=== PATIENT | male | born 1930 | race Caucasian/White ===

== ENCOUNTER 2018-07-27 12:33 | Emergency (ER) | payer OTHER ==
[~2018-07-27 12:33] MED LIST: ACETAMINOPHEN325 M1 PO; ALBUTEROL2.5 MG/0.1 INH; ASPIRIN81 M2 PO; CIPRO250 M1 PO; COLACE100 MG PO; LIDODERM 5%1 PATC1 TOP; MEDROL DOSPAK21 TA1; MEDROL DOSPAK21 TAB PO; NORCO 5-325 TA1 EACH PO; PREDNISONE 10 M10 M1 PO; ROBAXIN 750 MG750 M1 PO; SPIRIVA INH; VENTOLIN HFA 1818 GM INH
[2018-07-27] MEDS ORDERED: ARICEPT 5 MG TAB5 MG PO (13:17)
[2018-07-27] MEDS ORDERED: B-12500 MCG PO (13:19)
[2018-07-27 16:04] VITALS: BP 128/67
== END 2018-07-27 16:04 | disposition home or self-care (01) ==
LOC: ER 12:33
DX: T14.8XXA Other injury of unspecified body region, initial encounter (principal); M54.6 Pain in thoracic spine; M25.511 Pain in right shoulder; Z88.5 Allergy status to narcotic agent; Z88.8 Allergy status to other drugs, medicaments and biological substances; W18.30XA Fall on same level, unspecified, initial encounter; Y93.89 Activity, other specified; Y92.89 Other specified places as the place of occurrence of the external cause; Y99.8 Other external cause status

== ENCOUNTER 2018-10-17 21:41 | Emergency (ER) | payer OTHER ==
[~2018-10-17] VITALS: Ht 182.9 cm; Wt 86.2 kg
[~2018-10-17 21:41] MED LIST changes: +ARICEPT 5 MG TAB5 MG PO; +B-12500 MCG PO
[2018-10-17 23:42] LABS: URINE BILIRUBIN NEGATIVE (Negative); URINE BLOOD TRACE (Negative); URINE CLARITY CLEAR; URINE COLOR YELLOW; URINE GLUCOSE-RANDOM* NEGATIVE (Negative); URINE KETONES NEGATIVE (Negative); URINE LEUKOCYTES-REFLEX NEGATIVE (Negative); URINE NITRITE-REFLEX NEGATIVE (Negative); URINE PROTEIN (DIPSTICK) NEGATIVE (Negative); URINE SPECIFIC GRAVITY <= 1.005 (1.005-1.035); URINE UROBILINOGEN 0.2 E.U./dl (0.2-1.0)
[2018-10-17 23:54] LABS: HEMATOCRIT 38.8 % (42.0-52.0); HEMOGLOBIN 13.3 gm/dL (14.0-18.0); MCH 31.4 pg (26.0-34.0); MCHC 34.2 g/dL (28.0-37.0); PLATELET COUNT 215 thou/uL (150-400); RBC 4.22 mil/uL (4.50-6.00); RDW 14.3 % (10.5-14.5); WBC 10.3 thou/uL (4.0-11.0)
[2018-10-17 23:57] LABS: AMP/METHAMP Negative (Negative); BARBITURATES Negative (Negative); BENZODIAZEPINES Negative (Negative); COCAINE Negative (Negative); METHADONE Negative (Negative); OPIATES Negative (Negative); PCP Negative (Negative)
[2018-10-18 00:09] LABS: ANION GAP 9 mmol/L (7-16); BUN 19 mg/dL (7-18); CALCIUM 9.5 mg/dL (8.5-10.1); CHLORIDE 101 mmol/L (98-107); CO2 27 mmol/L (21-32); CREATININE 1.1 mg/dL (0.7-1.3); GLUCOSE 91 mg/dL (74-106); SODIUM 137 mmol/L (136-145)
[2018-10-18 00:15] LABS: ALBUMIN 3.7 g/dL (3.4-5.0); SGOT 17 U/L (15-37); SGPT 16 U/L (30-65); TOTAL BILIRUBIN 0.5 mg/dL (<0.1-1.0); TOTAL PROTEIN 7.5 g/dL (6.4-8.2); TROPONIN-I <0.06 ng/mL (<0.06)
[2018-10-18 00:26] LABS: ABSOLUTE NEUTROPHILS 7.4 thou/uL (1.4-8.2)
[2018-10-18 01:00] VITALS: BP 134/75
--- NOTE | 2018-10-21 07:56 | EKG ---
[address] [address] [address] [address] ELECTROCARDIOGRAM REPORT Name: NAIMA WHEELER Room #: DEP [facility]#: [id number] Admission: 10/17/18 Attend Phys: Discharge: 10/18/18 Date of : 31 Report #: [id number] THIS REPORT FOR: //name// [facility] ED Test Date: 2018-10-17 Test Time: 23:03:21 Pat Name: NAIMA WHEELER Department: Room: Gender: M Cycle Touring Guide: cassandra : 1930 Requested By: Tez Kaufman Order Number: [id number] MD: Hola Pinon Measurements Intervals [place] Rate: 69 P: -46 IN: 192 QRS: -36 QRSD: 83 T: 60 QT: 391 QTc: 419 Interpretive Statements Sinus rhythm Left axis deviation Abnormal R-wave progression, early transition Compared to ECG 10/20/2012 13:04:02 No significant change was found Electronically Signed On 10-21-2018 7:56:24 CDT by Hola Pinon [email or web address] <ELECTRONICALLY SIGNED> By: Hola Pinon MD, [facility] 10/21/18 0756 02 02 Hola Pinon MD, [facility] /EPI
== END 2018-10-18 01:00 | disposition home or self-care (01) ==
LOC: ER 21:41
PROVIDERS: Emergency Medicine
DX: R53.1 Weakness (principal); R41.0 Disorientation, unspecified; R19.7 Diarrhea, unspecified; R42 Dizziness and giddiness; E16.2 Hypoglycemia, unspecified; M54.9 Dorsalgia, unspecified; G89.29 Other chronic pain; Z90.49 Acquired absence of other specified parts of digestive tract; Z90.89 Acquired absence of other organs; Z88.5 Allergy status to narcotic agent; Z88.8 Allergy status to other drugs, medicaments and biological substances; W18.39XA Other fall on same level, initial encounter; Y92.89 Other specified places as the place of occurrence of the external cause; Y93.89 Activity, other specified; Y99.8 Other external cause status

== ENCOUNTER 2019-03-01 17:34 | Emergency (ER) | payer OTHER ==
[~2019-03-01] VITALS: Ht 182.9 cm; Wt 90.7 kg
[2019-03-01 19:51] VITALS: BP 106/67
== END 2019-03-01 20:06 | disposition home or self-care (01) ==
LOC: ER 17:34
DX: S51.812A Laceration without foreign body of left forearm, initial encounter (principal); Z90.49 Acquired absence of other specified parts of digestive tract; Z88.6 Allergy status to analgesic agent; Z88.8 Allergy status to other drugs, medicaments and biological substances; W18.39XA Other fall on same level, initial encounter; Y93.89 Activity, other specified; Y92.89 Other specified places as the place of occurrence of the external cause; Y99.8 Other external cause status

== ENCOUNTER 2019-03-06 08:42 | Inpatient (IN) | payer OTHER ==
[~2019-03-06] VITALS: Ht 188 cm; Wt 81.6 kg
[2019-03-06 08:48] VITALS: BP 125/67
[2019-03-06 09:22] LABS: ABSOLUTE NEUTROPHILS 11.2 thou/uL (1.4-8.2); BASOPHILS 0.6 % (0.0-2.0); EOSINOPHILS 0.1 % (0.0-3.0); HEMATOCRIT 43.6 % (42.0-52.0); HEMOGLOBIN 14.2 gm/dL (14.0-18.0); MCH 30.5 pg (26.0-34.0); MCHC 32.5 g/dL (28.0-37.0); MCV 93.7 fL (80.0-100.0); PLATELET COUNT 223 thou/uL (150-400); POLYS 89.3 % (36.0-66.0); RBC 4.66 mil/uL (4.50-6.00); RDW 13.8 % (10.5-14.5); WBC 12.6 thou/uL (4.0-11.0)
[2019-03-06 09:30] LABS: ANION GAP 14 mmol/L (7-16); BUN 23 mg/dL (7-18); CHLORIDE 100 mmol/L (98-107); CO2 23 mmol/L (21-32); CREATININE 1.6 mg/dL (0.7-1.3); GLUCOSE 190 mg/dL (74-106); POTASSIUM 4.4 mmol/L (3.5-5.1); SODIUM 137 mmol/L (136-145)
[2019-03-06 09:39] LABS: TROPONIN-I <0.06 ng/mL (<0.06)
[2019-03-06 12:37] VITALS: BP 125/57
--- NOTE | 2019-03-06 13:56 | EKG ---
[address] [address] ELECTROCARDIOGRAM REPORT Name: NAIMA WHEELER Room #: 461-P ADM IN M.R.#: [id number] Admission: 03/06/19 Attend Phys: Beck Adam MD Discharge: Date of : 31 Report #: [id number] THIS REPORT FOR: //name// [facility] ED Test Date: 2019-03-06 Test Time: 09:26:02 Pat Name: NAIMA WHEELER Department: Room: 461 Gender: M Spanish Instructor: ESHEETS : 1930 Requested By: Scott Still Order Number: [id number] MD: Theo De La Garza Measurements Intervals [place] Rate: 89 P: -11 MI: 168 QRS: -47 QRSD: 83 T: 70 QT: 331 QTc: 403 Interpretive Statements Sinus rhythm Left anterior fascicular block Abnormal R-wave progression, early transition Compared to ECG 10/17/2018 23:03:21 Left anterior fascicular block now present Left-axis deviation no longer present Electronically Signed On 03-06-2019 13:55:49 RECORD PRESSMAN by Theo De La Garza [email or web address] <ELECTRONICALLY SIGNED> By: Theo De La Garza MD 03/06/19 1355 5 5 Theo De La Garza MD /EPI
--- NOTE | 2019-03-06 14:52 | NUR ---
ASSUMED CARE OF PATIENT APPROX. 1330. PATIENT ALERT AND AWAKE, VSS, TEMP 99.1, NO APPARENT PAIN. PATIENT HAS NON PRODUCTIVE COUGH, LUNGS DIM AND BREATHING REGULAR. FAMILY AT BEDSIDE. NO SIGNS OF DISTRESS. WILL CONTINUE TO MONITOR.
[2019-03-06 19:51] VITALS: BP 138/654
--- NOTE | 2019-03-07 02:34 | NUR ---
PATIENT AOX2 FORGETFUL AND CONFUSED AT TIME. PATIENT ON DROPLET ISOLATION. PATIENT HAS SCD ON. PATIENT HAS A NON PRODUCIVE COUGH. PATIENT HAS STITCHES ON LFA AND ABRASION ON THE NOSE NO S/S F INFECTION. PATIENT DENIED PAIN OR DISCOMFORT. PATIENT INCONTIENT PERICARE AND BARRIER CREAM APPLIED NEEDED. PATIENT IN BED ASLEEP AT THIS TIME BREATHING REGULAR AND UNLABOURED.
[2019-03-07 04:44] LABS: HEMATOCRIT 42.3 % (42.0-52.0); HEMOGLOBIN 13.8 gm/dL (14.0-18.0); MCH 30.9 pg (26.0-34.0); MCHC 32.7 g/dL (28.0-37.0); MCV 94.3 fL (80.0-100.0); RBC 4.48 mil/uL (4.50-6.00); WBC 8.4 thou/uL (4.0-11.0)
[2019-03-07 04:52] LABS: CALCIUM 8.6 mg/dL (8.5-10.1); MAGNESIUM 1.9 mg/dL (1.8-2.4); POTASSIUM 3.5 mmol/L (3.5-5.1)
[2019-03-07 08:51] VITALS: BP 116/67
[2019-03-07 15:00] VITALS: BP 108/57
--- NOTE | 2019-03-07 18:43 | NUR ---
PT A&OX2, VSS, NO APPARENT PAIN. PATIENT HAS COUGH, LUNGS COURSE, BREATHING REGULAR. NO SIGNS OF DISTRESS. PATIENT HAS LOOSE STOOLS TODAY. IV FLUIDS RUNNING. WILL CONTINUE TO MONITOR.
[2019-03-07 20:50] VITALS: BP 121/64
[2019-03-08 02:42] LABS: URINE BILIRUBIN NEGATIVE (Negative); URINE BLOOD 1+ (Negative); URINE CLARITY CLEAR; URINE COLOR YELLOW; URINE GLUCOSE-RANDOM* NEGATIVE (Negative); URINE KETONES NEGATIVE (Negative); URINE LEUKOCYTES-REFLEX NEGATIVE (Negative); URINE NITRITE-REFLEX NEGATIVE (Negative); URINE PROTEIN (DIPSTICK) NEGATIVE (Negative); URINE SPECIFIC GRAVITY 1.025 (1.005-1.035); URINE UROBILINOGEN 0.2 E.U./dl (0.2-1.0)
[2019-03-08 02:49] LABS: BACTERIA-REFLEX None Seen /HPF (None Seen); CASTS None Seen /LPF (None Seen); CRYSTALS None Seen /LPF (None Seen); MUCUS None Seen strn/LPF (None Seen); SQUAMOUS None Seen /LPF (0-3); URINE RBC None Seen /HPF (0-2); URINE WBC-REFLEX None Seen /HPF (0-5)
--- NOTE | 2019-03-08 03:10 | NUR ---
PATIENT AOX2 CONFUSED AND FORGETFUL. PATIENT CONTINUES TO BE ON ISOLATION FOR INFLUENZA A. PATIENT HAS 9 SUTURES ON LFA AND ABRASION ON THE NOSE, D/T A FALL AT HOME.NO S/S OF INFECTION. PAIN CONTROLLED THIS SHIFT. PATIENT INCONTIENT PERICARE AND BARRIER CREAM APPLIED NEEDED. PATIENT IN BED ASLEEP AT THIS TIME BREATHING REGULAR AND NLABOURED.
[2019-03-08 08:12] VITALS: BP 143/85
--- NOTE | 2019-03-08 18:55 | NUR ---
Alert, oriented to self; confused, diarrhea, Dr. Jair duron, no response; no sign of pain, no n/v; good appetite. afebrile.
--- NOTE | 2019-03-09 07:43 | NUR ---
ASSUMED CARE AROUND 191. AXOX2. CONFUSED WITH INTEMITTENT IMPULSION. ISO FOR INFLUENZA. NO S/S ACUTE DISTRESS NOTED OR REPORTED AT THIS TIME. CARE TRANSFERRED TO INCOMING RN AT THIS TIME.
[2019-03-09 08:00] VITALS: BP 104/82
--- NOTE | 2019-03-09 09:49 | NUR ---
INITIAL ASSESSMENT: Pt evaluated for d/c planning needs. Reviewed chart and spoke with nurse, pt and pt's daughter. Pt lives alone in house. Dtr lives a block away and states pt is never alone while he is awake. He is alone at night. Pt has memory issues and family has been looking into assisted living. Family wants pt to go directly to [place], and not d/c home. Discussed SNF and dtr is in agreement. Dtr said she has been looking at [facility] and wants referral sent to [facility]. Pt had used walker or cane at home. Pt has had home health in the past. Referral faxed to [facility]. Will remain available to assist as needed.
--- NOTE | 2019-03-09 10:56 | NUR ---
Received awake on bed. Due medications given as prescribed, able to swallow meds w/o difficulty. A+O2-3. On room air. Vital signs stable. Assisted in ADLs. On and off incontinence- checked frequently and changed as needed. With NS at 126cc/hr infusing well at R Hand. Falls bundle in place. Assisted and encouraged in eating and drinking. Able to sit out on chair today. A/w discharge plans and placement. Maintained on isolation due to Influenza, protocol observed.
[2019-03-09 15:00] VITALS: BP 140/69
[2019-03-09 19:23] VITALS: BP 110/55
--- NOTE | 2019-03-10 05:44 | NUR ---
Pt. rested quietly most of the shift, but early this am he has been restless. Pt. has set off his bed alarm off frequently. He wants to urinate and urinal offered to him, but he has also been incontinent. Bed alarm is on.
[2019-03-10 07:37] VITALS: BP 136/69
--- NOTE | 2019-03-10 10:19 | NUR ---
SW reviewed chart and spoke with nursing and attending physician. Pt has been accepted to [facility]. SW discussed with [facility] air traffic coordinator, who states they are able to accept pt today. SW notified attending physician to determine if pt is medically stable. Pt is able to transport via w/c van. SW and Spaghetti Machine Operator are following to assist as needed with discharge planning.
--- NOTE | 2019-03-10 11:35 | NUR ---
Received awake on bed. Due medications given as prescribed, able to swallow meds w/o difficulty. On room air. Vital signs stable. Assisted in ADLs. Maintained on isolation due to Influenza. Pt with dementia- re-oriented from time to time, pleasantly confused. Falls bundle in place- pt can be impulsive at times. Incontinent of B/B- checked frequently and changed as needed. With NS at 126cc/hr, infusing well at R hand. A/W placement plans, facility staff assessed pt yesterday and said they might not be able to take pt since he has flu- but will let CM know re:plans. Assisted and encouraged in eating and drinking, with good appetite; no nausea, no vomiting and no abdominal pain noted.
[2019-03-10] MEDS ORDERED: TAMIFLU30 MG PO (12:32)
[2019-03-10] MEDS ORDERED: ACETAMINOPHEN325 M1 PO (12:32)
[2019-03-10] MEDS ORDERED: CEFUROXIME500 MG PO (12:32)
[2019-03-10] MEDS ORDERED: COLACE100 MG PO (12:32)
--- NOTE | 2019-03-10 14:24 | NUR ---
DISCHARGE ORDERS COMPLETED AND FAXED TO [facility]. TRANSPORTATION ARRANGED PER JEN, 1530 HOURS. CALL PLACED TO DAUGHTER BRIDGETTE TO NOTIFY. CHART COPY COMPLETED PER SHELL REPRINT OPERATOR. UNIT RN NOTIFIED, CONTACT NUMBER FOR REPORT AVAILABLE ON PATIENTS DISCHARGE ORDERS.
== END 2019-03-10 16:18 | DRG 193 ==
LOC: ER 08:42 → EROBS 11:30 → 4W 11:30
PROVIDERS: Emergency Medicine; ADMIT Internal Medicine
DX: J10.00 Influenza due to other identified influenza virus with unspecified type of pneumonia (principal); G92 Toxic encephalopathy; N17.9 Acute kidney failure, unspecified; J15.9 Unspecified bacterial pneumonia; F03.90 Unspecified dementia, unspecified severity, without behavioral disturbance, psychotic disturbance, mood disturbance, and anxiety; I86.1 Scrotal varices; S02.2XXA Fracture of nasal bones, initial encounter for closed fracture; W18.39XA Other fall on same level, initial encounter; R29.6 Repeated falls; N18.9 Chronic kidney disease, unspecified; I67.9 Cerebrovascular disease, unspecified; Z88.5 Allergy status to narcotic agent; Z90.89 Acquired absence of other organs; Z88.8 Allergy status to other drugs, medicaments and biological substances; Y93.89 Activity, other specified; Y99.8 Other external cause status; Y92.012 Bathroom of single-family (private) house as the place of occurrence of the external cause
CPT/HCPCS: 10040

== ENCOUNTER 2020-02-29 19:22 | Inpatient (IN) | payer OTHER ==
[~2020-02-29] VITALS: Ht 172.7 cm; Wt 79.2 kg
--- NOTE | ~2020-02-29 | HC ---
[facility] [place] [address] CONSULTATION Name: NAIMA WHEELER Room #: 350-P ADM IN M.R.#: [id number] Admission: 02/29/20 Attend Phys: Kalpesh Lima MD Discharge: Date of : 31 Report #: [id number] THIS REPORT FOR: cc: Dayami Meraz MD, Cora A. MD Al-Shelby,Mahsa Ferreira MD ~ REASON FOR CONSULTATION: Acute kidney injury, electrolyte derangement. REASON FOR PRESENTATION: Revoked hospice sent by his family members. HISTORY OF PRESENT ILLNESS: This is obtained from the medical chart. The patient is not able to provide me with any details. He has dementia. He was diagnosed with COVID-19 in the middle part of January. He was in his nursing facility on hospice care, family visited with the patient and they were very worried about his breathing status. The patient was going through the natural process. Family decided to revoke his hospice and brining for further evaluation and management. In the Emergency Room, he was found to be in acute kidney injury with some electrolyte derangements including hypernatremia, hypokalemia. The patient was admitted for further management of his issues. He continues to be a NO CODE. PAST MEDICAL HISTORY: Obtained from the medical chart; 1. Recent COVID-19. 2. Dementia. 3. Chronic respiratory failure. 4. Status post tonsillectomy. 5. Appendectomy. 6. TURP. SOCIAL HISTORY: [facility] is [facility]. FAMILY HISTORY: Unobtainable given the patient's current mental status. REVIEW OF SYSTEMS: Unobtainable given the patient's current mental status. ALLERGIES LISTED: CODEINE AND DILTIAZEM. MEDICATIONS: Listed in the long term facility; 1. MORPHINE. 2. TRAMADOL. 3. LORAZEPAM. PHYSICAL EXAMINATION: GENERAL: Confused, lethargic. VITAL SIGNS: Temperature 36.8, pulse rate 100, blood pressure is 127/85. HEAD AND NECK: No jugular venous distention. Dry mucous membrane. [facility] [address] [place] [address] CONSULTATION Name: LIAM,KEENE Room #: 350-P ADM IN M.R.#: [id number] Admission: 02/29/20 Attend Phys: Kalpesh Lima MD Discharge: Date of : 31 Report #: [id number] CHEST: Bilateral rhonchi. CARDIOVASCULAR: No rub. Regular. ABDOMEN: Soft, nontender. LOWER EXTREMITIES: No edema. LABORATORY EVALUATION: White blood cell count 15.1, sodium 151, potassium 2.9, BUN 66, creatinine 1.8. ASSESSMENT AND PLAN: 1. Acute kidney injury due to dehydration. 2. Hypernatremia. 3. Hypokalemia. 4. Electrolyte derangements and acute kidney injury. We are expected and the patient was going through the natural process. Hospice has been revoked. The patient is currently maintained on IV fluid with good improvement of his renal parameters; however, I expect that those will be a recurrent issue given the patient's current mental status. Unfortunately, there is nothing else we could offer for this patient, was ultimately going to succumb to . Need to readdress his long-term care with the family members. 5. Replace potassium. 6. No heroic or invasive measures from my side. I will sign off. By: [id number] Mahsa Jane MD /nt
[~2020-02-29 19:22] MED LIST changes: +CEFUROXIME500 MG PO; +TAMIFLU30 MG PO
[2020-02-29 19:30] VITALS: BP 121/83
[2020-02-29 19:46] LABS: HEMATOCRIT 49.8 % (42.0-52.0); HEMOGLOBIN 15.9 gm/dL (14.0-18.0); MCH 30.9 pg (26.0-34.0); MCHC 31.9 g/dL (28.0-37.0); MCV 96.9 fL (80.0-100.0); PLATELET COUNT 283 thou/uL (150-400); RBC 5.14 mil/uL (4.50-6.00); RDW 14.3 % (10.5-14.5); WBC 20.3 thou/uL (4.0-11.0)
[2020-02-29 19:50] LABS: CALCIUM 10.5 mg/dL (8.5-10.1); CREATININE 3.2 mg/dL (0.7-1.3)
[2020-02-29 19:50] LABS: BE(vivo) -2.4 mmol/L (-2 to +3); HCO3 20.1 mmol/L (22.0-26.0); PCO2 29.8 mmHg (35.0-45.0); pH 7.447 (7.360-7.450); sO2 86.3 % (92.0-98.0)
[2020-02-29 19:51] LABS: PO2 48.2 mmHg (80.0-100.0)
[2020-02-29 19:59] LABS: ALBUMIN 2.6 g/dL (3.4-5.0); TOTAL BILIRUBIN 1.8 mg/dL (0.2-1.0); TOTAL PROTEIN 7.7 g/dL (6.4-8.2); TROPONIN-I 0.18 ng/mL (<0.06)
[2020-02-29 20:11] LABS: APTT 26.4 Seconds (24.5-32.8); INR 1.4; PROTIME 14.6 Seconds (9.3-11.4)
[2020-02-29 20:12] LABS: URINE BILIRUBIN 1+ (Negative); URINE BLOOD TRACE (Negative); URINE CLARITY SL CLOUDY; URINE COLOR YELLOW; URINE GLUCOSE-RANDOM* NEGATIVE (Negative); URINE KETONES NEGATIVE (Negative); URINE LEUKOCYTES-REFLEX NEGATIVE (Negative); URINE NITRITE-REFLEX NEGATIVE (Negative); URINE PROTEIN (DIPSTICK) TRACE (Negative); URINE SPECIFIC GRAVITY >= 1.030 (1.005-1.035)
[2020-02-29 20:16] LABS: ICTOTEST (BILI CONFIRMATORY) Negative (Negative)
[2020-02-29 20:19] LABS: D-DIMER 19.54 ug/mLFEU (0.19-0.50)
[2020-02-29] MEDS ORDERED: ACETAMINOPHEN650 MG RECTAL (20:30)
[2020-02-29] MEDS ORDERED: BLINK TEARS15 ML OPHTHALMIC (20:30)
[2020-02-29] MEDS ORDERED: LEVSIN-SL0.125 MG SUBLING (20:31)
[2020-02-29] MEDS ORDERED: LORAZEPAM 2MG2 MG/M1 SUBLING (20:33)
[2020-02-29] MEDS ORDERED: MSL20MG/ML SUBLING ×2 (20:34)
[2020-02-29] MEDS ORDERED: MIRALAX119 GM PO (20:35)
[2020-02-29] MEDS ORDERED: TYLENOL325 M1 PO (20:35)
[2020-02-29] MEDS ORDERED: TRAMADOL 50 MG50 MG PO ×2 (20:36)
[2020-02-29 20:43] LABS: ABSOLUTE NEUTROPHILS 17.3 thou/uL (1.4-8.2)
[2020-02-29 22:12] LABS: BE(vivo) -4.2 mmol/L (-2 to +3); HCO3 21.4 mmol/L (22.0-26.0); PCO2 41.1 mmHg (35.0-45.0); PO2 87.5 mmHg (80.0-100.0); pH 7.335 (7.360-7.450); sO2 96.1 % (92.0-98.0)
[2020-02-29 23:51] LABS: HEMOGLOBIN 14.7 gm/dL (14.0-18.0); MCH 30.8 pg (26.0-34.0); MCV 96.1 fL (80.0-100.0); RBC 4.79 mil/uL (4.50-6.00); RDW 14.5 % (10.5-14.5); WBC 16.8 thou/uL (4.0-11.0)
[2020-02-29 23:57] LABS: INR 1.4; PROTIME 14.8 Seconds (9.3-11.4)
[2020-03-01 05:40] LABS: HEMATOCRIT 42.9 % (42.0-52.0); HEMOGLOBIN 13.8 gm/dL (14.0-18.0); MCHC 32.1 g/dL (28.0-37.0); MCV 96.7 fL (80.0-100.0); RBC 4.44 mil/uL (4.50-6.00); RDW 14.4 % (10.5-14.5); WBC 14.2 thou/uL (4.0-11.0)
[2020-03-01 05:55] LABS: CALCIUM 8.9 mg/dL (8.5-10.1); CREATININE 2.9 mg/dL (0.7-1.3); POTASSIUM 4.5 mmol/L (3.5-5.1)
--- NOTE | 2020-03-01 06:10 | NUR ---
HOSPICE CALLED FOR UPDATE ON PATIENT.
--- NOTE | 2020-03-01 07:40 | EKG ---
[address] [place] [employer] [place] [address] ELECTROCARDIOGRAM REPORT Name: NAIMA WHEELER Room #: 170-9 ADM IN M.R.#: [id number] Admission: 02/29/20 Attend Phys: Kalpesh Lima MD Discharge: Date of : 31 Report #: [id number] [facility] ED Test Date: 2020-02-29 Test Time: 19:59:27 Pat Name: NAIMA WHEELER Department: Room: 170 Gender: M Web Editor: mpark : 1930 Requested By: Go Hernandes Order Number: [id number] MD: Casey Warren Measurements Intervals [place] Rate: 120 P: 73 NE: 169 QRS: -66 QRSD: 83 T: 80 QT: 312 QTc: 441 Interpretive Statements Sinus tachycardia Left anterior fascicular block Baseline wander in lead(s) V4,V6 Compared to ECG 03/06/2019 09:26:02 Sinus rhythm no longer present Electronically Signed On 03-01-2020 7:40:36 ROD TAPE OPERATOR by Casey Warren [email or web address] <ELECTRONICALLY SIGNED> By: Casey Warren MD, [facility] 03/01/20 0740 58 58 Casey Warren MD, [facility] /EPI
--- NOTE | 2020-03-01 13:22 | NUR ---
89 year old male presenting to the ED on 02-29-20 via EMS from [facility] secondary to respiratory distress. Pt was diagnosed with Covid 26 days ago then placed on hospice care 4 days later in the dementia [facility]. When family members visited with the pt since he had been diagnosed with COVID when he was found to be in respiratory distress and to have oxygen saturation in the 70s. Family has revoked hospice care. Pulmonology called to see patient and also indicates the family has revoked [facility]. The patient has been admitted to hospitalist Dr. Lima with: Acute on chronic hypoxic respiratory failure, Sepsis/SIRS, Hypernatremia (Na 161), BRYCE, PE, elevated troponin, Hx of COVD 19 infection 02-13-2020, Bilateral wounds, Hyperglycemia and Ppx Heparin and protonix. Spoke with [facility] at [phone] to confirm revocation. States the nurse on the case did call the ED at 0610 am inquiring on patient which is documented in the medical record. They will have the nurse on the case call me as [facility] was looking for date and time of revocation to complete their notification to be faxed to [phone] (CM Main office fax). [facility] nurse is to follow up for confirmation of when revocation is faxed to the main CM office. Spoke with Itzel Nurse Music Critic with [facility] at [phone]. Itzel stated their office will fax the revocation. Once received this will be scanned into BAR and noted. Noted in their records Glory Ortega is listed as the daughter as Next of Kin at [phone] and other daughter Lily Aguayo is listed as notification with number [phone]. Spoke with Daughter Lily who agreed they did let have the patient revoked from Hospice and looking for acute treatment at this time. Explained the role of CM and notified a CM will reach out to her as the plans for discharge become more evident.
--- NOTE | 2020-03-01 16:57 | NUR ---
Letter of Revocation recieved and being scanned into BAR by UR.
[2020-03-01 18:14] VITALS: BP 100/59
[2020-03-01 20:14] VITALS: BP 123/85
[2020-03-02 00:16] VITALS: BP 118/79
--- NOTE | 2020-03-02 01:49 | NUR ---
PT ADMITTED FROM ER FROM HOSPICE. PT'S FAMILT DECIDED TO REVOKE HOSPICE STATUS. PT IS NOW A DNR. NONVERBAL. INCOMPREHENSIBLE SOUNDS NOTED. PUPILS 2 HEMALATHA . PT DOES SQUEEZE HANDS UPON REQUEST. VSS AFEBRILE. UNLABORED WITH BIPAP ON PRESENTLY. 01/23 RT 12 FIO2 60%. LUNGS SOUND DIMINISHED BILATERALLY. WOUNDS NOTED . WILL TAKE PICTURES. PT'S DAUGHTER SAID HE HAD A FALL IN JANUARY AND OBTAINED WOUNDS TO RIGHT HIP AND LEFT BOYD. PEREZ DRAINING LG AMTS KEN COLORED URINE. CAREPLAN INITIATED. TITRATING HEPARIN ORDERED.
[2020-03-02 04:06] LABS: GLYCOHEMOGLOBIN (HGB A1C) 6.7 % (4.8-5.6)
[2020-03-02 04:47] VITALS: BP 115/77
[2020-03-02 06:07] LABS: HEMATOCRIT 39.7 % (42.0-52.0); HEMOGLOBIN 12.9 gm/dL (14.0-18.0); MCH 30.9 pg (26.0-34.0); MCHC 32.4 g/dL (28.0-37.0); MCV 95.6 fL (80.0-100.0); RBC 4.16 mil/uL (4.50-6.00); RDW 14.1 % (10.5-14.5); WBC 15.1 thou/uL (4.0-11.0)
[2020-03-02 06:48] LABS: ALBUMIN 1.9 g/dL (3.4-5.0); CALCIUM 9.4 mg/dL (8.5-10.1)
[2020-03-02 06:49] LABS: CREATININE 1.8 mg/dL (0.7-1.3)
[2020-03-02 06:51] LABS: POTASSIUM 2.9 mmol/L (3.5-5.1)
--- NOTE | 2020-03-02 06:51 | NUR ---
JESSE CALLED FROM LAB WITH CRITICAL K+ 2.9. NOTIFIED ALL APPROPRIATE PARTIES.
[2020-03-02 07:19] VITALS: BP 127/85
--- NOTE | 2020-03-02 07:34 | NUR ---
ATTEMPTED TO NOTIFY SAYDA LUBIN OF K 2.9. NO RETURN OF CALL AT 0657. DAY SHIFT NS TEXTED DR RAMON REGARDING K 2.9. HE IS WAITING FOR TINO OR TEXT BACK.
--- NOTE | 2020-03-02 09:58 | NUR ---
PATIENT NOTED TO BE QUITE AGITATIVE THIS AM. NOTED TO PULL OUT PEREZ CATH, AND ATTEMPTING TO PULL OUT IV.
[2020-03-02 11:03] VITALS: BP 98/63
--- NOTE | 2020-03-02 11:10 | HC ---
[facility] [place] [address] CONSULTATION Name: NAIMA WHEELER Room #: 350-P ADM IN M.R.#: [id number] Admission: 02/29/20 Attend Phys: Kalpesh Lima MD Discharge: Date of : 31 Report #: [id number] THIS REPORT FOR: cc: Dayami Meraz MD, Cora A. MD Barry, Joseph W. MD ~ DATE OF SERVICE: 03/01/2020 INFECTIOUS DISEASE CONSULTATION ATTENDING PHYSICIAN: Dr. Lima. REASON FOR EVALUATION: COVID-19 infection, complicated by severe pneumonitis, respiratory failure. HISTORY OF PRESENT ILLNESS: Chart reviewed, patient examined. This is an 89-year-old gentleman admitted and transferred from some assisted living in respiratory distress, had been in hospice for the last several weeks, apparently with some progressive dyspnea, encephalopathy. Due to the concerns, he was transferred. Evaluation noted a marked hypoxemia, now on BiPAP at 80%. Chest x-ray initially showed no acute abnormalities. Lactic acid was elevated at 4.1. Urinalysis was otherwise unrevealing. Procalcitonin elevated at 5.81. On further questioning, it was determined that he has been COVID positive for almost a month. Blood cultures initially were collected and they are sterile thus far. He was placed on empiric therapy with Zosyn, given a single dose of levofloxacin as well as cefepime, vancomycin was continued as well. He is on methylprednisolone. He is not responsive at this point. ALLERGIES: CODEINE, DILTIAZEM. CURRENT MEDICATIONS: Vancomycin, ipratropium and albuterol inhaler, pantoprazole, insulin, methylprednisolone, Zosyn, heparin. PAST MEDICAL HISTORY: Dementia, chronic renal insufficiency, chronic respiratory failure requiring supplemental oxygen 2 liters per nasal cannula. FAMILY HISTORY: Not available. REVIEW OF SYSTEMS: Not obtainable. PHYSICAL EXAMINATION: GENERAL: He appears chronically ill, undernourished. He is supine, moderate to marked distress secondary to respiratory difficulties. He is maintained on BiPAP. VITAL SIGNS: Temperature 99.1 initially, pulse 98, respirations 23, blood [facility] [address] [place] [address] CONSULTATION Name: ST ARAU[facility]IM[facility] Room #: 350-P [facility] IN M.R.#: [id number] Admission: 02/29/20 Attend Phys: Kalpesh Lima MD Discharge: Date of : 31 Report #: [id number] pressure 102/82. SKIN: Warm, multiple nevi. HEENT: BiPAP in place. NECK: Appears to be supple. LUNGS: Coarse breath sounds. HEART: Borderline tachycardic, regular. I do not appreciate a murmur. ABDOMEN: Soft, nondistended. No peritoneal signs. GENITOURINARY AND RECTAL: Deferred. LABORATORY DATA: Initial ABG, pH 7.447, pCO2 of 29.8, pO2 48.2 and that was on nonrebreather, prompted BiPAP. Electrolytes: Sodium 158, potassium 4.0, chloride 121, bicarbonate is 24, anion gap of 13, BUN and creatinine 105 and 3.2, glucose of 271. AST of 36, ALT of 53. Calcium elevated at 2.5, albumin of 2.6. Chest x-ray describes as no acute abnormalities. Lactic acid initially 4.1, repeat was 2.6. Troponin less than 0.06. CBC: White count of 14.2, H and H 13.8 and 42.9, platelets of 229. ASSESSMENT: COVID-19 infection, complicated by pneumonitis and respiratory failure. The patient has a large medical disease burden. He is also profoundly dehydrated, I believe, with marked hypernatremia as well as renal failure. It has been almost a month since his COVID diagnosis. I do not think there is any role for remdesivir, ivermectin in this setting because continue corticosteroid is certainly a risk for bacterial secondary complications. I think it is reasonable to continue empiric therapy. He has been given broad-spectrum at this point. We will continue Zosyn for now. It is difficult to ascertain what his baseline is at this point. He remains critically ill and need to consider whether it is reasonable to put him on more aggressive therapy such as ventilatory support, judiciously hydrate him up and try to optimize his nutritional status at some point, hopefully in the next few days. <ELECTRONICALLY SIGNED> By: Amilcar Coppola MD 03/02/20 1110 1330 1409 Amilcar Coppola MD /nt
--- NOTE | 2020-03-02 16:12 | NUR ---
INITIAL ASSESSMENT: Received consult for discharge planning. TRISTAN reviewed chart and spoke with nursing and attending physician. Pt was admitted from [facility] due to hypoxia. Pt placed in Enhanced Isolation due to COVID-19. Pt was on service with [facility] prior to admission. Family revoked hospice for pt to be admitted. TRISTAN spoke with Melina at [facility] to provide update. Pt had first COVID positive test on 02/02. Pt had been taken out of isolation on 02/17. Pt was admitted on hospice on 02/16. Enhanced Isolation precautions have been discontinued. Attending to discuss plan of care with pt's family. Per Melina, [facility] is able to accept pt back on hospice if stable for transfer. TRISTAN is following to assist as needed with discharge planning.
[2020-03-02 20:06] VITALS: BP 117/59
--- NOTE | 2020-03-03 08:16 | NUR ---
PROGRESS PT AWAKE AT TIMES BUT NOT ALERT. MOANS ON AND OFF AND WHEN REPOSITIONED OR TOUCHED. PT IS ON COMFORT CARE BUT ACTIVELY BEING TREATED FOR AN UTI AND PNEUMONIA WITH ANTIBIOTICS. MORPHINE GIVEN SPARINGLY WITH SOME EFFECT PT SLEPT AWHILE AFTER. TELE INTACT READING SR/ST CONTINUE POC.
[2020-03-03 08:28] VITALS: BP 124/73
--- NOTE | 2020-03-03 12:38 | NUR ---
ASSUMED PT CARE THIS AM. PT IN BED, BEING REPOSITIONED ACCORDINGLY. BOTH IV'S ARE PATENT. PAIN NOTED THIS AM AFTER REPOSITIONING PATIENT. NO PAIN NOTED UPON RESTING. PT ON 2 LITERS NC. FALL PRECAUTIONS IN PLACE. COMPLETE BED BATH GIVEN.
--- NOTE | 2020-03-03 16:20 | NUR ---
CARE TEAM INDICATED THAT PT WAS MADE COMFORT MEASURES. ALL MEDS EXCEPT COMFORT MEDS WERE STOPPED TODAY. CM MET WITH PT'S DTRS BRIDGETTE AND EFRAIN, AND SON PRATIK THIS DAY. PHYSICAIN INDICATED THAT PT IS MEDICALLY STABLE TO RETURN TO [facility] THIS DAY. CM CONVEYED THIS TO CHILDREN AND THEY INDICATED THAT THEY WERE UNDER THE IMPRESSION THAT PT WAS MORE EMINANT. CM INDICATED THAT PHYSICIAN STATED HE WAS STABLE FOR TRNASFER DIDN'T REQUIRE ACUTE HOSPITALIZATION ANY LONGER. CM EXPLAINED HOSPICE AT [facility] AGAIN. YENNY CALLED FAMILY AGAIN. THEY INDICATED THEY WERE ALL OK WIHT HIM RETURNINF TO [facility]. CM CALLED ANDREE AT [facility] AND LEFT . CM CALLED [facility] AND SPOKE WITH JOSY. ASCROHAN ANTICIPATING PT RETURNING TOMORROW. CM FAXED CLINICAL. CM SPOKE WIHT [facility] AND THEY ARE WILLING AND ABLE TO ACCEPT BACK TOMORROW. CM NOTIFIED FAMILY.
[2020-03-03 19:40] VITALS: BP 140/82
--- NOTE | 2020-03-04 03:00 | NUR ---
PT CARE ASSUMED WITH PT RESTING IN PAIN.MORPHINE ADMINISTERED FOR COMFORT.PT IS ON COMFOT CARE AND TO RETURN TO FACILITY TODAY.PT ON 2L OF O2 VIA NC.REPOSITIONED NEEDED.WILL CONTINUE TO MONITOR POC
[2020-03-04 07:25] VITALS: BP 145/95
--- NOTE | 2020-03-04 12:02 | NUR ---
CM FOLLOWED UP WITH JOSY AT [facility] NURSE AT [facility] AND THEY ARE ALL AWARE AND AGREEABLE WITH PT RETURNING THERE THIS DAY. EQUIPTMENT WILL BE DELIVRED BY 1500 PER [facility]. CM ARRANGED [facility] TRANSPORT BETWEEN [id number]. CM NOTIFIED PT'S DTR BRIDGETTE. CHART COPY ORDERED. ORDERS FAXED. [facility] FORM AND OUTSIDE THE HOSPITAL DNR FORM IN [place]. NO OTHER CM INTERVENTION INDICATED. CASE CLOSED.
--- NOTE | 2020-03-04 12:38 | NUR ---
ASSUMED PT CARE THIS AM. PT INITIALLY HAD NO PAIN, BUT PAIN WAS APPARENT LATER ON IN THE DAY. PAIN MEDS GIVEN, PT RESPONDED WELL TO THEM. IV IN PLACE, PATENT. ON 2 LITERS NC. ON A LOW AIRLOSS MATTRESS.
== END 2020-03-04 16:30 | disposition hospice, home (50) | DRG 871 ==
LOC: ER 19:22 → 3W 20:34 → EROBS 20:34 → 3W 03-01 19:43 → 4W 03-02 19:07
PROVIDERS: Emergency Medicine; Hospitalist; Nurse Practitioner Family; ADMIT Hospitalist; ATTEND Hospitalist
PROC: 5A09457 Assistance with Respiratory Ventilation, 24-96 Consecutive Hours, Continuous Positive Airway Pressure (ICD-10-PCS; principal; 2020-02-29)
DX: A41.9 Sepsis, unspecified organism (principal); R65.21 Severe sepsis with septic shock; U07.1 COVID-19; J12.82 Pneumonia due to coronavirus disease 2019; J96.21 Acute and chronic respiratory failure with hypoxia; I26.99 Other pulmonary embolism without acute cor pulmonale; E43 Unspecified severe protein-calorie malnutrition; N17.0 Acute kidney failure with tubular necrosis; E87.0 Hyperosmolality and hypernatremia; N17.9 Acute kidney failure, unspecified; F03.90 Unspecified dementia, unspecified severity, without behavioral disturbance, psychotic disturbance, mood disturbance, and anxiety; G47.00 Insomnia, unspecified; N18.9 Chronic kidney disease, unspecified; L89.210 Pressure ulcer of right hip, unstageable; I87.2 Venous insufficiency (chronic) (peripheral); E86.0 Dehydration; E87.6 Hypokalemia; Z86.16 Personal history of COVID-19; Z66 Do not resuscitate; E11.65 Type 2 diabetes mellitus with hyperglycemia; E11.22 Type 2 diabetes mellitus with diabetic chronic kidney disease; Z51.5 Encounter for palliative care; Z68.26 Body mass index [BMI] 26.0-26.9, adult; Z90.49 Acquired absence of other specified parts of digestive tract; Z86.73 Personal history of transient ischemic attack (TIA), and cerebral infarction without residual deficits; Z88.6 Allergy status to analgesic agent; Z88.8 Allergy status to other drugs, medicaments and biological substances; Z23 Encounter for immunization; Z79.899 Other long term (current) drug therapy
CPT/HCPCS: 10045; 10879